=== PATIENT | female | born 1955 | race Caucasian/White ===

== ENCOUNTER 2021-07-12 07:54 | Outpatient (CLI) | payer MEDICARE | END 2021-07-12 07:55 | disposition home or self-care (01) | LOC: CT 07:54 | PROVIDERS: ATTEND Internal Medicine Endocrinology, Diabetes & Metabolism | DX: L04.0 Acute lymphadenitis of face, head and neck (principal); J35.1 Hypertrophy of tonsils; K80.20 Calculus of gallbladder without cholecystitis without obstruction; I31.8 Other specified diseases of pericardium | CPT/HCPCS: 70491; 71260; 82565 ==